=== PATIENT | female | born 2000 | race Two or more races ===

== ENCOUNTER 2024-04-25 23:03 | Observation (INO) | payer SELFPAY ==
[2024-04-25 23:07] VITALS: BMI 24.6
[2024-04-25 23:14] VITALS: BP 112/63; PULSE 78; RESP 17; RESP 98; TEMP 36.9
[2024-04-25 23:15] VITALS: BP 112/63; PULSE 72
[2024-04-25 23:30] VITALS: TEMP 36.9
== END 2024-04-25 23:50 | disposition home or self-care (01) ==
PROVIDERS: Admitting Provider Obstetrics & Gynecology; Visit Provider Obstetrics & Gynecology
DX: O36.8120 Decreased fetal movements, second trimester, not applicable or unspecified (principal); Z3A.24 24 weeks gestation of pregnancy
CPT/HCPCS: 59025; 59899

== ENCOUNTER 2024-06-12 00:10 | Observation (INO) | payer MEDICAID, SELFPAY ==
[2024-06-12 00:19] VITALS: TEMP 36.8; BMI 25.7
[2024-06-12 00:36] VITALS: BP 109/65; PULSE 72; PULSE 76; RESP 16; RESP 98; TEMP 36.8
--- NOTE | 2024-06-12 00:55 | XR_ITS ---
Examination: Complete OB ultrasound greater than 14 weeks Date and time of exam: June 05,025 0126 hours INDICATIONS: Pelvic pressure beginning several days ago Findings: Viable intrauterine single fetus with single amniotic sac presentation cephalic spine maternal right Cardiac motion 129 BPM Placenta fundal posterior grade 1 Umbilical cord insertion seen Amniotic fluid is 4.7 cm Cervix 1.7 cm Ovaries obscured by bowel gas. Composite estimated gestational age based on BPD, head circumference, abdominal circumference, femur length is 31 weeks 2 days Estimated weight 1555 g. Survey of intracranial anatomy, spinal anatomy, abdominal anatomy, four-chamber heart performed with no abnormalities identified. Impression: Viable intrauterine gestation cephalic presentation Amniotic fluid index 4.7 cm.
--- NOTE | 2024-06-12 02:00 | PC.NURSE ---
0055: ua ordered entered by mistake in patient pre in account [id number]. see pre in account for ua results
[2024-06-12 02:18] LABS: Collection Type, Urine Clean Catch; RBC,Urine 0 /hpf (0-3)
[2024-06-12 02:23] LABS: Bacteria,Urine 2+; Bilirubin,Urine Negative (Negative); Blood,Urine Negative (Negative); Clarity,Urine Turbid (Clear/Hazy); Color,Urine Lt-Yellow (Lt Yel-Yel); Glucose, Urine Negative (Negative); Hyaline Casts,Urine < 1 /hpf (0-1); Ketones,Urine Negative (Negative); Leukocyte Esterase,Urine Positive (Negative); Nitrite,Urine Negative (Negative); PH,Urine 6.5 (5.0-7.0); Protein,Urine Negative (Neg - Trace); Squamous Epithelial Cell,Urine 20 /hpf (0-5); Urobilinogen,Urine Negative mg/dL (0.0-1.0); WBC,Urine 29 /hpf (0-5)
--- NOTE | 2024-06-12 02:42 | PRELIM_ITS ---
ORIGINAL REPORTnull ADDENDUM REPORT Placenta is fundal posterior grade 1. No evidence of placental abruption. The ovaries are not identified. Report Electronically Signed By: Evans Salinas 06/12/2024 3:26:23 AM [EST]
== END 2024-06-12 03:43 | disposition home or self-care (01) ==
PROVIDERS: Admitting Provider Obstetrics & Gynecology; Visit Provider Obstetrics & Gynecology
DX: O26.893 Other specified pregnancy related conditions, third trimester (principal); Z3A.31 31 weeks gestation of pregnancy; R10.9 Unspecified abdominal pain
CPT/HCPCS: 59025; 59899; 76805; 81001; G0378

== ENCOUNTER 2024-07-29 13:52 | Observation (INO) | payer MEDICAID, SELFPAY ==
[2024-07-29] VITALS (11 sets, daily range): BP systolic 117; BP diastolic 62; PULSE 64–82; RESP 17–99; TEMP 37; O2SAT 98–99; BMI 24.6
== END 2024-07-29 14:45 | disposition home or self-care (01) ==
PROVIDERS: Admitting Provider Specialist; PCP Family Medicine; Visit Provider Specialist
DX: O47.1 False labor at or after 37 completed weeks of gestation (principal); Z3A.38 38 weeks gestation of pregnancy
CPT/HCPCS: 59025; 59899

== ENCOUNTER 2024-08-01 19:16 | Observation (INO) | payer MEDICAID, SELFPAY ==
[2024-08-01] VITALS (7 sets, daily range): BP systolic 115; BP diastolic 63–67; PULSE 69–81; RESP 17–100; TEMP 36.6; O2SAT 93–99; BMI 27.1
[2024-08-01 20:04] LABS: ROM Kit Lot # 578010271; Swb Mxed in Solvent 1 min? Yes
[2024-08-01 20:05] LABS: ROM Swab Mixed By: CHADO; Rupture of Fetal Membranes Negative (Negative)
== END 2024-08-01 20:37 | disposition home or self-care (01) ==
PROVIDERS: Admitting Provider Obstetrics & Gynecology; Visit Provider Obstetrics & Gynecology
DX: Z34.03 Encounter for supervision of normal first pregnancy, third trimester (principal); Z3A.38 38 weeks gestation of pregnancy
CPT/HCPCS: 59025; 59899; 84112

== ENCOUNTER 2024-08-05 10:09 | Observation (INO) | payer MEDICAID, SELFPAY ==
[2024-08-05] VITALS (14 sets, daily range): BP systolic 109–113; BP diastolic 63–69; PULSE 63–95; RESP 18–100; TEMP 36.7; O2SAT 98–100; BMI 26.3
--- NOTE | 2024-08-05 10:13 | XR_ITS ---
Examination: Complete OB ultrasound greater than 14 weeks Date and time of exam: August 05, 2024 1030 hours INDICATIONS: Leaking amniotic fluid one week Findings: Viable intrauterine single fetus with single amniotic sac presentation cephalic spine maternal right Cardiac motion 137 BPM Placenta posterior grade 2 Umbilical cords insertion seen Amniotic fluid index 10.7 cm Cervix 3.1 cm Ovaries obscured by bowel gas. Composite estimated gestational age based on BPD, head circumference, abdominal circumference, femur length is 37 weeks 4 days Estimated weight 3150 g. Survey of intracranial anatomy, spinal anatomy, abdominal anatomy, four-chamber heart performed with no abnormalities identified. Impression: Viable intrauterine gestation cephalic presentation Amniotic fluid index 10.7 cm.
[2024-08-05 10:54] LABS: ROM Kit Lot # 578010271; ROM Swab Mixed By: JL; Swb Mxed in Solvent 1 min? Yes
[2024-08-05 10:55] LABS: Rupture of Fetal Membranes Negative (Negative)
== END 2024-08-05 12:00 | disposition home or self-care (01) ==
PROVIDERS: Admitting Provider Student in an Organized Health Care Education/Training Program; Visit Provider Student in an Organized Health Care Education/Training Program
DX: Z34.83 Encounter for supervision of other normal pregnancy, third trimester (principal); Z3A.39 39 weeks gestation of pregnancy
CPT/HCPCS: 59025; 59899; 76805; 84112

== ENCOUNTER 2024-08-07 11:55 | Observation (INO) | payer MEDICAID, SELFPAY ==
[2024-08-07] VITALS (16 sets, daily range): BP systolic 98–114; BP diastolic 61–62; PULSE 55–89; RESP 18–99; TEMP 36.4; O2SAT 91–100; BMI 24.7
--- NOTE | 2024-08-07 16:22 | ESPR_ITS ---
Documentation for date of: 08/07/24 OB Labor Progress Note Pelvic Exam Dilation (cm): 3 Effacement (%): 70 station: -2 Amniotic membrane status: Intact Contractions Monitor mode: External Contraction frequency: x1 Contraction intensity: Mild Assessment and Plan Comments: Triage Note Gabby is a 23yo with SIUP at term presenting to L&D for ctx. No lof, no vaginal bleeding. Normal movement. Current : This has been uncomplicated, she has had regular OB care with her OBGYN ROS negative other than what was described above. Vitals wnl, afebrile General: well developed, well nourished, no acute distress, conversant Cardiac: normal heart rate Lungs: breathing without distress Abdomen: soft, gravid, non-tender, no rebound or guarding SCE: 3/70/-2 (unchanged from prior exam) NST: Reactive, +accels, no decels, mod marii [place]: irregular ctx Assessment: Gabby is a 23yo with SIUP at term with no evidence of labor based on SCE and toco. Vitals wnl, benign exam. Reassuring status. Plan: -Safe for discharge home at this time -Has scheduled IOL on 08/08 -Return precautions discussed Maura Don MD
== END 2024-08-07 13:15 | disposition home or self-care (01) ==
PROVIDERS: Admitting Provider Obstetrics & Gynecology; PCP Student in an Organized Health Care Education/Training Program; Visit Provider Obstetrics & Gynecology
DX: O47.1 False labor at or after 37 completed weeks of gestation (principal); Z3A.39 39 weeks gestation of pregnancy
CPT/HCPCS: 59899

== ENCOUNTER 2024-08-07 23:48 | Inpatient (IN) | payer MEDICAID, SELFPAY ==
[2024-08-07 23:49] VITALS: BMI 26.4
[2024-08-08] VITALS (154 sets, daily range): BP systolic 81–157; BP diastolic 46–71; PULSE 56–131; RESP 16–98; TEMP 36.3–37.6; O2SAT 85–100; BMI 27.3
[2024-08-08 00:54] LABS: Basophils % (Auto) 0 % (0-2.5); Eosinophils # (Auto) 0.3 Thou/mm3 (0.0-0.5); Eosinophils % (Auto) 2 % (0-10); Hematocrit 33.9 % (36.0-46.0); Immature Granulocytes % (Auto) 1 % (0-0); Immature Granulocytes Auto 0.15 Thou/mm3 (0.00-0.00); Lymphocytes % (Auto) 17 % (10-50); Mean Corpuscular HGB Conc 35.4 g/dl (31.0-37.0); Mean Corpuscular Hemoglobin 29.1 pg (25.0-35.0); Mean Corpuscular Volume 82 fL (80-100); Monocytes # (Auto) 1.2 Thou/mm3 (0.0-0.8); Monocytes % (Auto) 10 % (0-12); Neutrophils % (Auto) 69 % (37-80); Nucleated Red Blood Cell % 0 /100 WBC (0); Platelet Count 277 Thou/mm3 (140-440); RDW Standard Deviation 41.7 fL (36.4-46.3); Red Blood Count 4.12 Miln/mm3 (4.00-5.20); White Blood Count 11.6 Thou/mm3 (3.6-11.0)
[2024-08-08] MEDS: RINGERS LACTATED 1000 ML 1,000 ML 100 ML IV ×2 (01:19→03:28)
[2024-08-08 02:27] LABS: Syphilis Nonreactive (Nonreactive)
[2024-08-08] MEDS: OXYTOCIN in NS 30 units 30 UNIT/500 ML BAG IV (02:30)
[2024-08-08] MEDS: Ampicillin Inj 2,000 MG in SODIUM CHLORIDE 0.9% (POP) 100 ML 200 MG IV (04:50)
--- NOTE | 2024-08-08 06:46 | PD.LDHP ---
Documentation for date of: 08/08/24 OB Labor/Induct. HPI History of Present Illness : 2 Para: 0 Term pregnancies: 0 pregnancies: 0 Living children: 0 History of Abortions: Spontaneous and Elective: 1 History of Vaginal deliveries: 0 History of sections: No History of : No Date of last menstrual period: 11/05/23 GAYATHRI: 08/11/24 Gestational Age (weeks): 39 Gestational Age (days): 4 Gestational age based on last menstrual period: 39 History of present illness: Patient presents for regular, painful ctx. She was seen earlier in the day and was 3cm, sent home since that represented no change from a prior exam. No LOF. No vaginal bleeding. Normal movement. No fevers/chills. History of Present Dating criteria: LMP confirmed by 1st trimester US Adequate Care: Yes Ultrasounds: normal mid trimester US Narrative: Chlamydia in early , treated. Test of cure negative 05/17/24. Initially desired elective delivery, but after counseling by Dr. Spencer at OB visits, patient desired vaginal delivery Labs Maternal Blood Type: A Pos Labs: Positive: Rubella Titre, Negative: RPR, Hepatitis B, HIV, Chlamydia and Gonorrhea and Unknown: Herpes Type 1, Herpes Type 2, Group Beta Strep and Covid-19 Narrative: NIPT negative CF negative SMA negative 1hr glucose 123 Starting HgbA1c 4.9 Chlamydia positive initially, treated, test of cure negative 05/17/24 Review of Systems Review of Systems Narrative Review of Systems: Review of Systems Systems Reviewed: All systems reviewed, normal except as documented Constitutional Constitutional: Denies body ache(s), Denies chills, Denies fever(s) and Denies headache(s) ENT Ears, Nose, Mouth, and Throat: Denies headache(s) and Denies vertigo Cardiovascular Cardiovascular: Denies chest pain, Denies palpitations, Denies dyspnea and Denies syncope Respiratory Respiratory: Denies cough, Denies dyspnea Gastrointestinal Gastrointestinal: Denies nausea and Denies vomiting Neurologic Neurologic: Denies convulsions, Denies headache(s), Denies other visual disturbances, Denies syncope and Denies vertigo Past Medical History Family History OTHER FAMILY HX: both parents have T2DM Surgical History SURGICAL: Negative Section Social History SOCIAL: No tobacco/ETOH/illicit drug use. , good social support. Meds Home Medications and Allergies Home Medications ?Medication ?Instructions ?Recorded ?Confirmed ?Type vits no.126-ferrous fum 1 tab PO DAILY 04/25/24 08/01/24 History 28 mg iron-folic acid 800 mcg tablet (Classic ) famotidine 40 mg tablet 40 mg PO PRN 07/29/24 08/01/24 History Allergies Allergy/AdvReac Type Severity Reaction Status Date / Time No Known Allergies Allergy Verified 08/08/24 00:02 OB Exam Physical Exam Vital signs: Temp Pulse Resp BP Pulse Ox 98.1 F 86 18 95/57 L 97 08/08/24 05:16 08/08/24 06:31 08/08/24 05:16 08/08/24 06:31 08/08/24 06:41 Narrative: General: well developed, well nourished, no acute distress, conversant Cardiac: normal heart rate Lungs: breathing without distress Abdomen: soft, gravid, non-tender, no rebound or guarding Extremities: no pain with palpation of calves Detailed Labor and Delivery Exam Dilation (cm): 3 Effacement (%): 80 Cervix position: mid station: -2 Consistency: soft Presentation: Vertex Membranes: intact monitor accelerations: 15x15 monitor decelerations: None intermediate card tender variability: Moderate (11-25) Contraction frequency (min): q5min OB Results Labs 08/08/24 00:40 Labs: Short CBC 08/08/24 Range/Units 00:40 WBC 11.6 H (3.6-11.0) Thou/mm3 Hgb 12.0 (12.0-16.0) g/dL Hct 33.9 L (36.0-46.0) % Plt Count 277 (140-440) Thou/mm3 OB Assessment & Plan Assessment and Plan (1) Active labor at term: Status: Acute Assessment and plan: Gabby is a 23yo with SIUP at 39&4wk presenting in prodromal labor. Regular/painful contractions, SCE: 3/80/-2. Vitals wnl, benign exam. Reassuring assessment. PMhx/ complicated by: Chlamydia in early , treated. Test of cure negative 05/17/24. Initially desired elective delivery, but after counseling by Dr. Hota, patient desired vaginal delivery Plan: -Patient is on the induction list for the morning. There is adequate nursing staff, so will keep patient and proceed with augmentation now. -Admit to L&D -Establish IV, routine labs -CEFM -Clear liquid diet -Nuclear Logging Engineer/consent re: augmentation, -GBS status: unknown (records report swab obtained in clinic, but RN called [facility] and no result found). Ampicillin per protocol. -Anticipate -Safe to proceed (2) Chlamydia infection affecting : Status: Acute (2) Chlamydia infection affecting Qualifiers: Trimester: first trimester Qualified Code(s): O98.811 - Other maternal infectious and parasitic diseases complicating , first trimester; A74.9 - Chlamydial infection, unspecified
[2024-08-08] MEDS: MINERAL OIL 30 ML UDC TOP (08:30)
[2024-08-08] MEDS: OXYTOCIN in NS 20 units 20 UNIT/1,000 ML BAG 125 UNIT IV (09:20)
[2024-08-08] MEDS: TRANEXAMIC ACID 1,000 MG IVPB 1,000 MG/100 ML BAG 200 MG IV (09:23)
--- NOTE | 2024-08-08 09:31 | PD.LDDELS ---
Data ([place]) Data Hx Section: No Maternal Blood Type: A Pos Rubella Titre: Positive RPR: Non-reactive Labs: Negative: RPR, Hepatitis B, HIV, Chlamydia and Gonorrhea and Unknown: Herpes Type 1, Herpes Type 2 and Group Beta Strep : 2 Para: 0 Term: 0 : 0 Livin Abortions: Spontaneous & Theraputic: 1 Delivery Data ([place]) Labor Data Initiation of labor: Augmentation Induction/Augmentation Agent: Pitocin ROM date: 08/08/24 ROM time: 04:35 Amniotic membrane rupture type: Spontaneous Amniotic fluid description: Clear Delivery Data EDC: 08/11/24 EDC calculated by:: LMP/early US confirmation Onset of labor date: 08/08/24 Onset of labor time: 04:35 Complete dilation date: 08/08/24 Complete dilation time: 08:20 [place] delivery date: 08/08/24 delivery time: 09:08 Gestational age (weeks): 39 Gestational age (days): 4 Placenta delivery date: 08/08/24 Stage 1 total time: Labor - Stage 1 Duration 3 hours and 45 minutes Delivered by: Alana Snider Delivery nurse: Chang Salgado RN [place] nurse: Ele Elliott RN Automotive Glass Technician at delivery: No Support person(s) at delivery: fob Delivery Method Delivery method: Normal Vaginal Delivery Presentation: Vertex position: OA Anesthesia Type Anesthesia Type: Epidural Delivery Room Medications Delivery room medications: Pitocin 20 u IV and other (TXA x1) Placenta Placenta delivery description: Spontaneous Cord blood sent to lab: Yes cord blood collection: Cord Blood Type Episiotomy Episiotomy description: None Lacerations #1: Perineal: 2nd degree Perineal repair Sutures used for repair: 3.0 Vicryl (CT) and 4.0 Vicryl (SH) EBL Estimated blood loss (ml): 200 Umbilical Cord cord description: 3 Vessels Additional Procedures Patient pushed for about 45 minutes and had an of a viable female . Infant's anterior shoulder delivered with gentle downward traction subsequent deliver the posterior shoulder and the body without complication. did have a loose nuchal cord x 1. Easily reduced. Now cord was clamped cut by FOB. Cord blood obtained. Three-vessel cord noted. Placenta expelled spontaneously and intact. Patient sustained a second-degree perineal laceration and a small periurethral laceratio, repaired using a 3-[address] suture and a 4-0 Vicryl on an SH suture. Excellent hemostasis achieved after vigorous fundal massage and removal of clots from the posterior fornix. EBL 200. Sponge and needle count correct. Mother and baby stable, skin to skin and bonding in LDR. [place] Data ([place]) Data [place]'s gender: Female weight (gms): 3185 g Weight (pounds): 7 lbs and 0.3 ozs
[2024-08-08] MEDS: IBUPROFEN TAB 400 MG TABLET 800 MG PO ×2 (11:20→20:18)
[2024-08-08 15:11] LABS: Basophils % (Auto) 0 % (0-2.5); Eosinophils # (Auto) 0.1 Thou/mm3 (0.0-0.5); Eosinophils % (Auto) 1 % (0-10); Hematocrit 31.7 % (36.0-46.0); Hemoglobin 10.9 g/dL (12.0-16.0); Immature Granulocytes % (Auto) 1 % (0-0); Immature Granulocytes Auto 0.14 Thou/mm3 (0.00-0.00); Lymphocytes # (Auto) 1.7 Thou/mm3 (1.0-4.8); Lymphocytes % (Auto) 10 % (10-50); Mean Corpuscular HGB Conc 34.4 g/dl (31.0-37.0); Mean Corpuscular Hemoglobin 29.6 pg (25.0-35.0); Mean Corpuscular Volume 86 fL (80-100); Monocytes % (Auto) 12 % (0-12); Neutrophils # (Auto) 12.9 Thou/mm3 (1.8-7.7); Neutrophils % (Auto) 76 % (37-80); Nucleated Red Blood Cell % 0 /100 WBC (0); Platelet Count 234 Thou/mm3 (140-440); RDW Standard Deviation 44.7 fL (36.4-46.3); Red Blood Count 3.68 Miln/mm3 (4.00-5.20)
[2024-08-08] MEDS: ACETAMINOPHEN 325 MG TABLET 650 MG PO ×2 (15:20→23:35)
[2024-08-09 04:00] VITALS: BP 99/60; PULSE 64; RESP 18; TEMP 36.8; O2SAT 97
[2024-08-09] MEDS: HYDROcodone/APAP 5/325 TABLET 1 TAB PO (04:37)
[2024-08-09 07:00] VITALS: BP 95/56; PULSE 65; RESP 16; TEMP 36.5; O2SAT 98
--- NOTE | 2024-08-09 08:04 | ESDS_ITS ---
DS: Providers Provider Date of admission: 08/08/24 00:50 Primary care physician: Tee Philip MD Admitting Provider: Maura Don MD Attending Provider on Admission: Maura Don MD Attending Provider on DC: Alana Snider CNM Discharging Provider: Alana Snider CNM Anticipated date of discharge: 08/09/24 DS: Diagnosis Discharge Diagnosis (1) Normal spontaneous vaginal delivery: Status: Acute (2) Encounter for care of lactating mother: Status: Acute (3) Normal labor: Status: Acute (4) with 39 completed weeks gestation: Status: Acute Problem List Completed Was Problem List Reviewed/Reconciled?: Yes Summary/Hosp Course Brief History: Patient presents for regular, painful ctx. She was seen earlier in the day and was 3cm, sent home since that represented no change from a prior exam. No LOF. No vaginal bleeding. Normal movement. No fevers/chills. 08/08/24: Patient pushed for about 45 minutes and had an of a viable female infant. Infant's anterior shoulder delivered with gentle downward traction subsequent deliver the posterior shoulder and the body without complication. Infant did have a loose nuchal cord x 1. Easily reduced. Now cord was clamped cut by FOB. Cord blood obtained. Three-vessel cord noted. Placenta expelled spontaneously and intact. Patient sustained a second-degree perineal laceration and a small periurethral laceration, repaired using a 3-[address] suture and a 4-0 Vicryl on an SH suture. Excellent hemostasis achieved after vigorous fundal massage and removal of clots from the posterior fornix. EBL 200. Sponge and needle count correct. Mother and baby stable, skin to skin and bonding in LDR. 08/09/24: PPD#1 patient is stable and afebrile doing well. Denies dizziness shortness of breath. Ambulating to the bathroom without any problems. Voiding with no issues. Passing gas. No bowel movement yet. Uterus is nontender fundus firm minimal lochia. Laceration is healing. Discharge instructions given. Patient to follow-up with Alana Snidre CNM in 3 weeks Peripartum Data Delivery Method: Normal Vaginal Delivery Episiotomy Description: None Laceration Description: yes and see Delivery Summary complications: none 1: Gender: Female Disposition of : home Status at Discharge Cognitive/behavioral status at discharge: Alert and oriented x 3 Functional status at discharge: independent ambulation Overall status at discharge: patient is progressing back to baseline Time Spent with Patient Time attestation: Total time spent providing and/or coordinating discharge services: Time spent: Greater than 30 minutes Exam Vital Signs Temp Pulse Resp BP Pulse Ox 98.4 F 83 18 103/57 L 99 08/08/24 07:30 08/08/24 09:18 08/08/24 05:16 08/08/24 09:18 08/08/24 09:11 Constitutional Constitutional: no acute distress Routine HEENT Exam Head: Present normocephalic and atraumatic Eye: Present EOMI, PERRL and normal accommodation ENT: Present mucous membranes moist Routine Neck Exam Neck: Present supple, full ROM and trachea midline Routine Respiratory Exam Respiratory: Present chest non-tender, lungs clear, normal breath sounds and no resp distress Routine Cardiovascular Exam Cardiovascular: Present RRR Routine Abdominal Exam Abdominal: Present soft and normoactive bowel sounds; Absent tenderness or distended Comments: Uterus nontender Fundus firm Routine Exam External: Present normal urethra appearance and lacerations (healing); Absent lesions Comments: Lochia is normal Routine Extremities Exam Extremities: Present full ROM, pulses intact and normal capillary refill; Absent calf tenderness or tenderness Routine Back/Spine/Pelvis Exam Back/Spine: Present full ROM Routine Skin Exam Skin: Present intact, dry and warm Routine Neurological Exam Neurological: Present alert, oriented X3 and CN II-XII intact Routine Psychiatric Exam Psychiatric: Present normal affect and normal thought process Discharge Plan Plan Patient Disposition: HOME (Self Care) Patient condition on transfer: Stable Prescriptions/Referrals Prescriptions/Med Rec: New ibuprofen 800 mg tablet 800 mg PO Q6H MDD 4 PRN (Reason: pain) Qty: 90 0RF docusate sodium [Colace] 100 mg capsule 100 mg PO BID Qty: 60 0RF lanolin 50 % ointment 1 applic topical TID PRN (Reason: skin irritation) Qty: 15 0RF Continued famotidine 40 mg tablet 40 mg PO PRN Patient Comments: TAKE 1 TABLET BY MOUTH EVERY DAY FOR 30 DAYS Classic 28 mg iron- 800 mcg tablet 1 tab PO DAILY Patient Comments: TAKE 1 TABLET BY MOUTH EVERY DAY Referrals: Tee Philip MD [Primary Care Provider] - Patient/Caregiver Discharge Instructions Meds to Beds: No Discharge Activity: activity as tolerated Other Discharge Activity Instructions:: Follow-up with Alana Snider CNM in 3 weeks Education Materials: After a Vaginal , After Delivery [place] Concerns, : Caring for Yourself Print Language: Wolof Stand Alone Forms: [facility] Award Info., Patient Portal Info Letter Discharge Order Discharge Orders: Discharge (Routine); Ordered 08/09/24 Ordered By: Alana Snider Planned Discharge Date 08/09/24
[2024-08-09] MEDS: DOCUSATE SOD 100 MG CAPSULE PO (08:53)
--- NOTE | 2024-08-09 12:41 | PC.LAC ---
Mom states she has been able to latch baby for feeds but is still having pain. She seems reluctant to have any help, assuming she does not want to have to expose herself to anyone other than spouse. She is not willing to allow anyone to help her with latching. Mom states pain in only on latch and not through the feeds. Explained how to get a deep latch and explained this could help with comfort level. parents understood
[2024-08-09] MEDS: IBUPROFEN TAB 400 MG TABLET 800 MG PO (13:15)
== END 2024-08-09 13:33 | disposition home or self-care (01) | DRG 560 ==
LOC: S4SX 08-08 09:38 → S4NX 08-08 11:52
PROVIDERS: Nurse Practitioner Women's Health; Admitting Provider Obstetrics & Gynecology; PCP Family Medicine; Visit Provider Obstetrics & Gynecology
DX: O62.0 Primary inadequate contractions (principal); O69.81X0 Labor and delivery complicated by cord around neck, without compression, not applicable or unspecified; O98.32 Other infections with a predominantly sexual mode of transmission complicating childbirth; O70.1 Second degree perineal laceration during delivery; O71.82 Other specified trauma to perineum and vulva; A56.8 Sexually transmitted chlamydial infection of other sites; Z37.0 Single live birth; Z3A.39 39 weeks gestation of pregnancy
CPT/HCPCS: 36415; 59025; 59409; 59899; 85025; 86780; 86850; 86900; 86901; 94762; J0290; J2590; J2795; J3010; J3490; J7120; A9270

== ENCOUNTER 2024-12-08 16:24 | Emergency (ER) | payer MEDICAID, SELFPAY ==
[2024-12-08 16:25] VITALS: BMI 23.0
[2024-12-08 16:39] VITALS: BP 110/71; PULSE 68; RESP 16; TEMP 36.3; O2SAT 97
--- NOTE | 2024-12-08 16:59 | XR_ITS ---
Examination: OB Transvaginal ultrasound of the pelvis, complete Technique: Transvaginal sonographic images pelvis performed using carrillo scale imaging Exam date and time: December 08, 2024, 1709 hours INDICATIONS: Headaches today, 3 months FINDINGS: Uterus 9.1 cm, CRL 1.2 cm corresponds to 7 weeks 2 days gestational age Cardiac motion 141 bpm Right ovary 4.4 cm arterial flow 24 mm corpus luteum cyst Left ovary 2.8 cm arterial flow IMPRESSION: Viable intrauterine gestation 7 weeks 2 days.
--- NOTE | 2024-12-08 17:00 | PD.EDRME ---
Rapid Medical Screening Exam RME Arrival date/time: 12/08/24 16:24 24-year-old female presents to emergency department today for complaints of headache Chief Complaint: Headache Vital signs: Vital Signs Temperature 97.4 F 12/08/24 16:39 Pulse Rate 68 12/08/24 16:39 Respiratory Rate 16 12/08/24 16:39 Blood Pressure 110/71 12/08/24 16:39 Pulse Oximetry (%) 97 12/08/24 16:39 Oxygen Delivery Method Room Air 12/08/24 16:39 Vital signs reviewed by provider: Yes Exam: On exam patient well-appearing patient does not appear look toxic acute distress Neurologic exam is normal heart and lung sounds are normal Clinical Impression: Lab work and imaging obtained
[2024-12-08 19:29] LABS: Collection Type, Urine Clean Catch
[2024-12-08 19:35] LABS: Bilirubin,Urine Negative (Negative); Blood,Urine Negative (Negative); Clarity,Urine Clear (Clear/Hazy); Color,Urine Lt-Yellow (Lt Yel-Yel); Culture Indicated,Urine Not Indicated; Glucose, Urine Negative (Negative); Ketones,Urine 1+ (Negative); Leukocyte Esterase,Urine Positive (Negative); Nitrite,Urine Negative (Negative); PH,Urine 7.0 (5.0-7.0); Protein,Urine Negative (Neg - Trace); RBC,Urine 1 /hpf (0-3); Specific Gravity,Urine 1.014 (1.001-1.035); Squamous Epithelial Cell,Urine 4 /hpf (0-5); Urobilinogen,Urine Negative mg/dL (0.0-1.0); WBC,Urine 2 /hpf (0-5)
== END 2024-12-08 19:50 | disposition left against medical advice (07) ==
LOC: SERX 17:06
PROVIDERS: Emergency Provider Nurse Practitioner Primary Care
DX: Z53.21 Procedure and treatment not carried out due to patient leaving prior to being seen by health care provider (principal)
CPT/HCPCS: 76817; 80053; 81001; 84702; 85025; 86900; 86901; 99282